=== PATIENT | female | born 1995 | race Hispanic/Latino ===

== ENCOUNTER 2021-08-30 22:23 | Emergency (ER) | payer OTHER ==
[~2021-08-30 22:23] MED LIST: CIPRO500 MG PO; CYCLOBENZAPRINE10 MG PO; DICLOFENAC POTA50 MG PO; METRONIDAZOLE500 MG PO; NORCO 5-325 TA1 EACH PO; TRAMADOL HCL50 MG PO
== END 2021-08-30 22:28 | disposition home or self-care (01) ==
LOC: ED 22:23 → EDBD 22:24 → ED 22:24
DX: R47.81 Slurred speech (principal)
CPT/HCPCS: 99283

== ENCOUNTER 2024-02-14 02:58 | Emergency (ER) | payer OTHER ==
[~2024-02-14] VITALS: Ht 162.6 cm; Wt 74.0 kg
[2024-02-14 03:44] LABS: PREGNANCY TEST, URINE NEGATIVE (NEG)
[2024-02-14] MEDS ORDERED: KETOROLAC TROMETHAMINE 30 MG/ML VIAL IM ONE (03:45)
[2024-02-14 04:29] LABS: AMPHETAMINES, URINE NEGATIVE (NEGATIVE); BARBITURATES, URINE NEGATIVE (NEGATIVE); BENZODIAZEPINE, URINE NEGATIVE (NEGATIVE); BUPRENORPHINE, URINE NEGATIVE (NEGATIVE); CANNABINOID, URINE POSITIVE (NEGATIVE); COCAINE, URINE NEGATIVE (NEGATIVE); ECSTASY, URINE NEGATIVE (NEGATIVE); FENTANYL, URINE NEGATIVE (NEGATIVE); METHADONE, URINE NEGATIVE (NEGATIVE); OPIATES, URINE NEGATIVE (NEGATIVE); PHENCYCLIDINE, URINE NEGATIVE (NEGATIVE)
[2024-02-14 04:54] LABS: OXYCODONE, URINE NEGATIVE (NEGATIVE)
[2024-02-14] MEDS ORDERED: TRAMADOL HCL 50 MG HOME.PACK PO ONE ×2 (05:00→07:30)
[2024-02-14 17:07] VITALS: BP 119/81
== END 2024-02-14 17:22 | disposition home or self-care (01) ==
LOC: ED 02:58
PROVIDERS: Family Medicine
DX: S01.311A Laceration without foreign body of right ear, initial encounter (principal); S40.011A Contusion of right shoulder, initial encounter; S00.432A Contusion of left ear, initial encounter; S40.212A Abrasion of left shoulder, initial encounter; Y09 Assault by unspecified means; Z79.2 Long term (current) use of antibiotics; Z79.899 Other long term (current) drug therapy
CPT/HCPCS: 70450; 70486; 72125; 73030; 73080; 80307; 84703; 96372; 99284-25; A9270; J1885

== ENCOUNTER 2025-03-24 18:36 | Emergency (ER) | payer OTHER ==
[~2025-03-24] VITALS: Ht 162.6 cm; Wt 94.8 kg
[2025-03-24] MEDS ORDERED: MORPHINE SULFATE 4 MG/ML VIAL IV ONE (19:45)
[2025-03-24] MEDS ORDERED: HYDROCODON-ACE1 EA10 PO (22:41)
[2025-03-24] MEDS ORDERED: HYDROCODONE BIT/ACETAMINOPHEN 5/325 MG 1 TAB HOME.PACK PO ONE (22:45)
[2025-03-24 23:04] VITALS: BP 127/82
== END 2025-03-24 23:05 | disposition home or self-care (01) ==
LOC: ED 18:36
DX: S01.81XA Laceration without foreign body of other part of head, initial encounter (principal); S16.1XXA Strain of muscle, fascia and tendon at neck level, initial encounter; S39.012A Strain of muscle, fascia and tendon of lower back, initial encounter; S29.012A Strain of muscle and tendon of back wall of thorax, initial encounter; W19.XXXA Unspecified fall, initial encounter
CPT/HCPCS: 36415; 70450; 72125; 72128; 72131; 84703; A9270; J2270; J2405